=== PATIENT | female | born 1965 | race American Indian/Alaskan Native ===

== ENCOUNTER 2019-12-24 14:22 | Emergency (ER) | payer MEDICARE ==
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
[2019-12-24 14:39] VITALS: BP 158/78
== END 2019-12-24 14:40 | disposition left against medical advice (07) ==
LOC: ED 14:22
DX: M79.601 Pain in right arm (principal)
CPT/HCPCS: 99283

== ENCOUNTER 2020-04-04 08:02 | Emergency (ER) | payer MEDICARE ==
[2020-04-04] MEDS ORDERED: HYDROcodone/ACETAMINOPHEN 5-325 MG TAB PO ONE (09:03)
--- NOTE | 2020-04-04 09:07 | Emergency Department Report ---
ED Back Pain/Injury HPI - General Chief Complaint: Pain General Stated Complaint: FLANK PAIN Time Seen by Provider: 04/04/20 08:52 Source: patient Limitations: No Limitations - History of Present Illness Initial Comments: 55-year-old female with a past medical history CAD with stent, diabetes, CHF hypertension, breast cancer currently in remission, and multiple sclerosis currently on meds presents to the hospital complains of right flank pain for several days to 1 week. Pain switches left to right side but currently right sided. Pain is intermittent, rated 7/10 intensity, worse with movement and palpation. She denies nausea, vomiting, chest pain, abdominal pain, dysuria, leg weakness, or numbness. Patient complains of urinary frequency. She is currently on Detrol. She denies history of kidney stones or recent fever. - Related Data Home Medications Medication Instructions Recorded Confirmed Last Taken Interferon Beta-1A/Albumin [Rebif 0.5 ml SC 3XW 05/24/14 01/30/16 Unknown Rebidose 44 Mcg/0.5 ml] Previous Rx's Medication Instructions Recorded Last Taken Type Metformin HCl [metFORMIN ER] 500 mg PO BID #60 tab.er.24h 05/27/14 11/10/14 Rx ALPRAZolam [Xanax TAB] 0.5 mg PO BID PRN #20 tablet 02/05/16 Unknown Rx Aspirin [Aspirin BABY CHEW TAB] 81 mg PO QDAY #100 tab.chew 02/05/16 Unknown Rx AtorvaSTATin [Lipitor] 20 mg PO QHS #30 tablet 02/05/16 Unknown Rx Famotidine [Pepcid] 20 mg PO BID #60 tablet 02/05/16 Unknown Rx Insulin Glargine [Lantus VIAL] 30 units SUB-Q DAILY #1 vial 02/05/16 Unknown Rx Ipratropium/Albuterol Sulfate 1 ampul IH TIDRT PRN #100 ampul.neb 02/05/16 Unknown Rx [DUONEB *Not for PRN Use*] SILVER sulfADIAZINE 50 GRAM 1 applic TP BID #100 tube 02/05/16 Unknown Rx [Thermazene 50 Gram] carvediloL [Coreg] 6.25 mg PO BID #60 tablet 02/05/16 Unknown Rx hydrALAZINE [Apresoline TAB] 75 mg PO Q8HR #90 tablet 02/05/16 Unknown Rx HYDROcodone/APAP 5-325 [[place] 1 each PO Q6HR PRN #14 tablet 04/04/20 Unknown Rx 5/325] cephALEXin [Keflex] 500 mg PO Q12HR #14 cap 04/04/20 Unknown Rx Allergies Allergy/AdvReac Type Severity Reaction Status Date / Time DEL Inhibitors Allergy Angioedema Verified 12/24/19 14:29 ED Review of Systems ROS: Stated complaint: FLANK PAIN Other details as noted in HPI Comment: All other systems reviewed and negative ED Past Medical Hx - Past Medical History Hx Hypertension: Yes Hx Heart Attack/AMI: Yes Hx Congestive Heart Failure: Yes (EF 20 to 25% on echo January 2016) Hx Diabetes: Yes Hx Deep Vein Thrombosis: No Hx Liver Disease: No Hx of Cancer: Yes (History of breast cancer) Hx Seizures: No Hx Asthma: No Hx COPD: No Hx Tuberculosis: No Hx Dementia: No Additional medical history: Multiple sclerosis - Surgical History Hx Coronary Stent: Yes (LAD drug-eluting stent placed April 2014) Hx Pacemaker: No Hx Internal Defibrillator: No Hx Breast Surgery: Yes Additional Surgical History: unknown - Social History Smoking Status: Never Smoker Substance Use Type: None - Medications Home Medications: Home Medications Medication Instructions Recorded Confirmed Last Taken Type Interferon Beta-1A/Albumin [Rebif 0.5 ml SC 3XW 05/24/14 01/30/16 Unknown History Rebidose 44 Mcg/0.5 ml] Metformin HCl [metFORMIN ER] 500 mg PO BID #60 tab.er.24h 05/27/14 01/30/16 11/10/14 Rx ALPRAZolam [Xanax TAB] 0.5 mg PO BID PRN #20 tablet 02/05/16 Unknown Rx Aspirin [Aspirin BABY CHEW TAB] 81 mg PO QDAY #100 tab.chew 02/05/16 Unknown Rx AtorvaSTATin [Lipitor] 20 mg PO QHS #30 tablet 02/05/16 Unknown Rx Famotidine [Pepcid] 20 mg PO BID #60 tablet 02/05/16 Unknown Rx Insulin Glargine [Lantus VIAL] 30 units SUB-Q DAILY #1 vial 02/05/16 Unknown Rx Ipratropium/Albuterol Sulfate 1 ampul IH TIDRT PRN #100 ampul.neb 02/05/16 Unknown Rx [DUONEB *Not for PRN Use*] SILVER sulfADIAZINE 50 GRAM 1 applic TP BID #100 tube 02/05/16 Unknown Rx [Thermazene 50 Gram] carvediloL [Coreg] 6.25 mg PO BID #60 tablet 02/05/16 Unknown Rx hydrALAZINE [Apresoline TAB] 75 mg PO Q8HR #90 tablet 02/05/16 Unknown Rx HYDROcodone/APAP 5-325 [[place] 1 each PO Q6HR PRN #14 tablet 04/04/20 Unknown Rx 5/325] cephALEXin [Keflex] 500 mg PO Q12HR #14 cap 04/04/20 Unknown Rx ED Physical Exam - General Limitations: No Limitations - Other Other exam information: General: No acute distress Head: Atraumatic Eyes: normal appearance ENT: Moist mucous membranes Neck: Normal appearance, no midline tenderness Chest: Clear to auscultation bilaterally CV: Regular rate and rhythm Abdomen: Soft, normal bowel sounds, nontender, nondistended, no rebound or guarding Back: Normal inspection Extremity: Normal inspection, no midline tenderness. Tenderness to the right flank/paraspinal muscles Neuro: Alert O x 3, no facial asymmetry, speech clear, no gross motor sensory deficit Psych: Appropriate behavior Skin: No rash ED Course Vital Signs 04/04/20 04/04/20 04/04/20 08:12 09:01 12:41 Temperature 96.0 F L Pulse Rate 86 98 H 90 Respiratory 20 24 18 Rate Blood Pressure 122/103 141/77 140/68 [Left] O2 Sat by Pulse 97 97 99 Oximetry ED Medical Decision Making - Lab Data Result diagrams: 04/04/20 09:33 04/04/20 09:33 Lab Results 04/04/20 04/04/20 04/04/20 Range/Units 09:30 09:33 09:33 WBC 10.1 (4.5-11.0) K/mm3 RBC 3.62 L (3.65-5.03) M/mm3 Hgb 11.4 (10.1-14.3) gm/dl Hct 33.6 (30.3-42.9) % MCV 93 (79-97) fl MCH 31 (28-32) pg MCHC 34 (30-34) % RDW 13.4 (13.2-15.2) % Plt Count 227 (140-440) K/mm3 [place] % (Auto) Cook Helper Dessert Add Manual Diff Complete Total Counted 100 Seg Neuts % (Manual) 63.0 (40.0-70.0) % Band Neutrophils % 0 % Lymphocytes % (Manual) 15.0 (13.4-35.0) % Reactive Lymphs % (Man) 0 % Monocytes % (Manual) 22.0 H (0.0-7.3) % Eosinophils % (Manual) 0 (0.0-4.3) % Basophils % (Manual) 0 (0.0-1.8) % Metamyelocytes % 0 % Myelocytes % 0 % Promyelocytes % 0 % Blast Cells % 0 % Nucleated RBC % Not Reportable Seg Neutrophils # Man 6.4 (1.8-7.7) K/mm3 Band Neutrophils # 0.0 K/mm3 Lymphocytes # (Manual) 1.5 (1.2-5.4) K/mm3 Abs React Lymphs (Man) 0.0 K/mm3 Monocytes # (Manual) 2.2 H (0.0-0.8) K/mm3 Eosinophils # (Manual) 0.0 (0.0-0.4) K/mm3 Basophils # (Manual) 0.0 (0.0-0.1) K/mm3 Metamyelocytes # 0.0 K/mm3 Myelocytes # 0.0 K/mm3 Promyelocytes # 0.0 K/mm3 Blast Cells # 0.0 K/mm3 WBC Morphology Not Reportable Hypersegmented Neuts Not Reportable Hyposegmented Neuts Not Reportable Hypogranular Neuts Not Reportable Smudge Cells Not Reportable Toxic Granulation Not Reportable Toxic Vacuolation Not Reportable Dohle Bodies Not Reportable Pelger-Huet Anomaly Not Reportable Ute Rods Not Reportable Platelet Estimate Consistent w auto Clumped Platelets Not Reportable Plt Clumps, EDTA Not Reportable Large Platelets Not Reportable Giant Platelets Not Reportable Platelet Satelliting Not Reportable Plt Morphology Comment Not Reportable RBC Morphology Not Reportable Dimorphic RBCs Not Reportable Polychromasia Not Reportable Hypochromasia 1+ Poikilocytosis Not Reportable Anisocytosis Not Reportable Microcytosis Not Reportable Macrocytosis Not Reportable Spherocytes Not Reportable Pappenheimer Bodies Not Reportable Sickle Cells Not Reportable Target Cells Not Reportable Tear Drop Cells Not Reportable Ovalocytes Not Reportable Helmet Cells Not Reportable Bhagat-Pyatt Bodies Not Reportable [place] Rings Not Reportable [place] Cells Not Reportable Bite Cells Not Reportable Crenated Cell Not Reportable Elliptocytes Not Reportable Acanthocytes (Spur) Not Reportable Rouleaux Not Reportable Hemoglobin C Crystals Not Reportable Schistocytes Not Reportable Malaria parasites Not Reportable Madhu Bodies Not Reportable Hem Pathologist Commnt No Sodium 137 (137-145) mmol/L Potassium 3.8 (3.6-5.0) mmol/L Chloride 97.4 L (98-107) mmol/L Carbon Dioxide 24 (22-30) mmol/L Anion Gap 19 mmol/L BUN 15 (7-17) mg/dL Creatinine 0.6 L (0.7-1.2) mg/dL Estimated GFR > 60 ml/min BUN/Creatinine Ratio 25 % Glucose 136 H (65-100) mg/dL Calcium 9.7 (8.4-10.2) mg/dL Total Bilirubin 0.30 (0.1-1.2) mg/dL AST 67 H (5-40) units/L ALT 45 (7-56) units/L Alkaline Phosphatase 56 (35-129) units/L Total Protein 7.5 (6.3-8.2) g/dL Albumin 4.2 (3.9-5) g/dL Albumin/Globulin Ratio 1.3 % Urine Color Yellow (Yellow) Urine Turbidity Cloudy (Clear) Urine pH 5.0 (5.0-7.0) Ur Specific [place] 1.029 (1.003-1.030) Urine Protein 100 mg/dl (Negative) mg/dL Urine Glucose (UA) >=500 (Negative) mg/dL Urine Ketones 20 (Negative) mg/dL Urine Blood Mod (Negative) Urine Nitrite Neg (Negative) Urine Bilirubin Neg (Negative) Urine Urobilinogen < 2.0 (<2.0) mg/dL Ur Leukocyte Esterase Lg (Negative) Urine WBC (Auto) > 182.0 H (0.0-6.0) /HPF Urine RBC (Auto) 8.0 (0.0-6.0) /HPF U Epithel Cells (Auto) < 1.0 (0-13.0) /HPF Urine Bacteria (Auto) 2+ (Negative) /HPF Urine Mucus Few /HPF - Radiology Data Radiology results: report reviewed CT ABDOMEN AND PELVIS WITHOUT CONTRAST HISTORY: right flank pain COMPARISON: None. TECHNIQUE: Axial CT images were obtained through the abdomen and pelvis without IV contrast. Sagittal and coronal reformatted images. All CT scans at this location are performed using CT dose reduction for ALARA by means of automated exposure control. FINDINGS: CT ABDOMEN: Lung Bases: Clear. An approximate 3.4 cm predominantly calcified right breast mass is partially imaged. Liver: No significant abnormality. 7 mm calcified granuloma in the superior right hepatic lobe is noted. Biliary: No significant abnormality. Spleen: No significant abnormality. Unenlarged. Pancreas: No significant abnormality. Adrenals: No significant abnormality. Kidneys: No significant abnormality. No evidence for nephrolithiasis or hydronephrosis. The ureters are normal course and caliber. Lymphatics: No lymphadenopathy. Vasculature: Moderate aortic and iliac calcifications. No aneurysm. Bowel/Peritoneum: There is mild diverticulosis of the proximal colon. No acute inflammatory changes, obstruction or obvious mass. No free fluid or free air. Normal appendix. CT PELVIS: : The uterus is enlarged and lobular consistent with moderate to severe uterine fibroid disease. Some of the fibroids demonstrates calcific degeneration. The adnexa, bladder and distal ureters are unremarkable. Osseous Structures: Moderate to severe degenerative changes are identified at L4-5 with anterolisthesis of L4 with respect L5 measuring 6 mm. This appears to be secondary to degenerative facet arthropathy. There is moderate to severe bilateral neural foraminal narrowing at this level. The remaining bony structures are unremarkable. Additional Findings: None IMPRESSION: No acute inflammatory process is identified. No clear explanation for right flank pain. No evidence for nephrolithiasis. Moderate to severe uterine fibroid disease. Atherosclerotic disease in the aorta. Grade 1/2 anterolisthesis of L4 with respect to L5 as described with degenerative changes. - Medical Decision Making Patient's urine positive for infection. No signs of urosepsis or pyelonephritis. Patient treated with [place] and IM Rocephin in the ED and will be discharged on antibiotics and pain medicine and encouraged outpatient follow-up. Urine cultures ordered. Critical Care Time: No Critical care attestation.: If time is entered above; I have spent that time in minutes in the direct care of this critically ill patient, excluding procedure time. ED Disposition Clinical Impression: UTI (urinary tract infection), Multiple sclerosis, Diabetes Disposition: TO HOME OR SELFCARE Is pt being admited?: No Does the pt Need Aspirin: No Condition: Stable Instructions: Urinary Tract Infection in Women (ED), Diabetes Mellitus Type 2 in Adults (ED) Additional Instructions: Take the medication as prescribed. Follow-up with your doctor or doctor/clinic provided. Return if symptoms worsen as indicated by your discharge instructions. Prescriptions: cephALEXin [Keflex] 500 mg PO Q12HR #14 cap HYDROcodone/APAP 5-325 [[place] 5/325] 1 each PO Q6HR PRN #14 tablet PRN Reason: Pain Referrals: YACHATS THOMASFREEMAN MD FAUSTO [Referring] - 3-5 Days your, doctor [Other] - 3-5 Days Time of Disposition: 14:12
[2020-04-04 09:52] LABS: Hematocrit 33.6 % (30.3-42.9); Hemoglobin 11.4 gm/dl (10.1-14.3); Mean Corpuscular HGB Conc 34 % (30-34); Mean Corpuscular Volume 93 fl (79-97); Platelet Count 227 K/mm3 (140-440); Red Blood Count 3.62 M/mm3 (3.65-5.03); Red Cell Distribution Width 13.4 % (13.2-15.2)
[2020-04-04 10:15] LABS: Alanine Aminotransferase 45 units/L (7-56); Albumin 4.2 g/dL (3.9-5); BUN/Creatinine Ratio 25; Blood Urea Nitrogen 15 mg/dL (7-17); Calcium 9.7 mg/dL (8.4-10.2); Hemolysis Index 3
--- NOTE | 2020-04-04 10:28 | Cat Scan Report ---
CT ABDOMEN AND PELVIS WITHOUT CONTRAST HISTORY: right flank pain COMPARISON: None. TECHNIQUE: Axial CT images were obtained through the abdomen and pelvis without IV contrast. Sagittal and coronal reformatted images. All CT scans at this location are performed using CT dose reduction for ALARA by means of automated exposure control. FINDINGS: CT ABDOMEN: Lung Bases: Clear. An approximate 3.4 cm predominantly calcified right breast mass is partially image d. Liver: No significant abnormality. 7 mm calcified granuloma in the superior right hepatic lobe is not ed. Biliary: No significant abnormality. Spleen: No significant abnormality. Unenlarged. Pancreas: No significant abnormality. Adrenals: No significant abnormality. Kidneys: No significant abnormality. No evidence for nephrolithiasis or hydronephrosis. The ureters a re normal course and caliber. Lymphatics: No lymphadenopathy. Vasculature: Moderate aortic and iliac calcifications. No aneurysm. Bowel/Peritoneum: There is mild diverticulosis of the proximal colon. No acute inflammatory changes, obstruction or obvious mass. No free fluid or free air. Normal appendix. CT PELVIS: : The uterus is enlarged and lobular consistent with moderate to severe uterine fibroid disease. So me of the fibroids demonstrates calcific degeneration. The adnexa, bladder and distal ureters are unr emarkable. Osseous Structures: Moderate to severe degenerative changes are identified at L4-5 with anterolisthes is of L4 with respect L5 measuring 6 mm. This appears to be secondary to degenerative facet arthropat hy. There is moderate to severe bilateral neural foraminal narrowing at this level. The remaining bon y structures are unremarkable. Additional Findings: None IMPRESSION: No acute inflammatory process is identified. No clear explanation for right flank pain. No evidence for nephrolithiasis. Moderate to severe uterine fibroid disease. Atherosclerotic disease in the aorta. Grade 1/2 anterolisthesis of L4 with respect to L5 as described with degenerative changes. Signer Name: Vazquez Carranza Jr, MD Signed: 04/04/2020 10:24 AM Workstation Name: [id number]
[2020-04-04 12:08] LABS: Bacteria,Urine 2+ /HPF (Negative); Bilirubin,Urine NEG (Negative); Blood,Urine MOD (Negative); Color,Urine Yellow (Yellow); Mucus,Urine FEW /HPF; Urobilinogen,Urine < 2.0 mg/dL (<2.0)
[2020-04-04 12:10] LABS: WBC,Urine > 182.0 /HPF (0.0-6.0)
[2020-04-04 12:42] VITALS: BP 140/68
[2020-04-04] MEDS ORDERED: LIDOCAINE-MPF (1%) 10 MG/1 ML VIAL 5 ML INFILTRATI ONE (12:48)
[2020-04-04 12:59] LABS: Basophils % (Manual) 0 % (0.0-1.8); Eosinophils % (Manual) 0 % (0.0-4.3); Hypochromasia 1+; Platelet Estimate Consistent w Auto; Total Cells Counted 100
== END 2020-04-04 14:40 | disposition home or self-care (01) ==
LOC: ED 08:02
DX: N39.0 Urinary tract infection, site not specified (principal); G35 Multiple sclerosis; E11.9 Type 2 diabetes mellitus without complications; I11.0 Hypertensive heart disease with heart failure; I50.9 Heart failure, unspecified; I25.2 Old myocardial infarction; Z85.3 Personal history of malignant neoplasm of breast; Z98.890 Other specified postprocedural states; Z79.899 Other long term (current) drug therapy; Z79.4 Long term (current) use of insulin; Z88.8 Allergy status to other drugs, medicaments and biological substances
CPT/HCPCS: 36415; 74176; 80053; 81001; 85007; 85025; 87086; 96372; 99284; J0696

== ENCOUNTER 2022-07-05 11:20 | Emergency (ER) | payer MEDICARE ==
[2022-07-05] MEDS ORDERED: fentaNYL 100 MCG/2 ML INJ IV ONE (12:55)
[2022-07-05] MEDS ORDERED: ONDANSETRON 4 MG/2 ML INJ IV ONE (12:55)
[2022-07-05] MEDS ORDERED: methylPREDNISolone Sod Succinate 125 MG/2 ML INJ IV ONE (13:04)
--- NOTE | 2022-07-05 13:07 | Emergency Department Report ---
HPI - General Chief Complaint: Back Pain/Injury Time Seen by Provider: 07/05/22 12:47 - HPI HPI: Room 17 Patient is a 57-year-old female present with a chief complaint of back pain. Patient has a history of MS states for the past week she has had pain in her lower back and bilateral shoulders. Patient denies any preceding trauma. Patient states she has a history of the same exact pain in the past all of which has been attributed to her multiple sclerosis. The patient gives her back pain a score of 8/10 and describes the pain as sharp and intermittent in nature exacerbated by movement ED Past Medical Hx - Past Medical History Hx Hypertension: Yes Hx Heart Attack/AMI: Yes Hx Congestive Heart Failure: Yes (EF 20 to 25% on echo January 2016) Hx Diabetes: Yes Additional medical history: Multiple sclerosis - Surgical History Hx Coronary Stent: Yes (LAD drug-eluting stent placed April 2014) Hx Breast Surgery: Yes Additional Surgical History: unknown - Family History Family history: no significant - Social History Smoking Status: Former Smoker (None x11 years) Substance Use Type: None (Denies illicit drug use), Alcohol (Occasional) - Medications Home Medications: Home Medications Medication Instructions Recorded Confirmed Last Taken Type Interferon Beta-1A/Albumin [Rebif 0.5 ml SC 3XW 05/24/14 08/29/20 Unknown History Rebidose 44 Mcg/0.5 ml] Metformin HCl [metFORMIN ER] 500 mg PO BID #60 tab.er.24h 05/27/14 08/29/20 0 11/10/14 Rx Insulin Glargine [Lantus VIAL] 30 units SUB-Q DAILY #1 vial 02/05/16 08/29/20 Unknown Rx carvediloL [Coreg] 6.25 mg PO BID #60 tablet 02/05/16 08/29/20 Unknown Rx Baclofen 20 mg PO DAILY 08/29/20 08/29/20 Unknown History Cholecalciferol (Vitamin D3) 1,250 mcg PO QWEEK 08/29/20 08/29/20 Unknown History [Decara 50,000 unit] Dapagliflozin Propanediol (Nf) 5 mg PO DAILY 08/29/20 08/29/20 Unknown History [Farxiga (Nf)] Linagliptin [Tradjenta] 5 mg PO QDAY 08/29/20 08/29/20 Unknown History Memantine 5 mg PO DAILY 08/29/20 08/29/20 Unknown History Pregabalin [Lyrica] 75 mg PO DAILY 08/29/20 08/29/20 Unknown History Rosuvastatin Calcium [Crestor] 20 mg PO DAILY 08/29/20 08/29/20 Unknown History Tolterodine [Detrol LA] 2 mg PO QDAY 08/29/20 08/29/20 Unknown History Tolterodine [Detrol LA] 4 mg PO DAILY 08/29/20 08/29/20 Unknown History glipiZIDE XL [Glucotrol Xl] 5 mg PO QAM 08/29/20 08/29/20 Unknown History hydrALAZINE [Apresoline TAB] 50 mg PO Q8HR 08/29/20 08/29/20 Unknown History HYDROcodone/APAP 5-325 [[place] 1 - 2 each PO Q6HR PRN #20 tablet 07/05/22 Unknown Rx 5/325] ED Review of Systems ROS: Stated complaint: BACK/FLANK PAIN (RT) Other details as noted in HPI Constitutional: no symptoms reported Eyes: denies: eye pain ENT: denies: throat pain Respiratory: no symptoms reported Cardiovascular: denies: chest pain Endocrine: no symptoms reported Gastrointestinal: denies: abdominal pain Genitourinary: denies: dysuria Musculoskeletal: back pain Neurological: denies: paresthesias Physical Exam - Physical Exam Vital Signs: Vital Signs 07/05/22 11:21 Temperature 98.8 F Pulse Rate 111 H Respiratory 15 Rate Blood Pressure 157/82 [Left] O2 Sat by Pulse 99 Oximetry Physical Exam: GENERAL: The patient is well-developed well-nourished female lying on stretcher not appearing to be in acute distress. [] HEENT: Normocephalic. Atraumatic. Extraocular motions are intact. Patient has moist mucous membranes. NECK: Supple. Trachea midline CHEST/LUNGS: Clear to auscultation. There is no respiratory distress noted. HEART/CARDIOVASCULAR: Regular. There is no tachycardia. There is no gallop rub or murmur. ABDOMEN: Abdomen is soft, nontender. Patient has normal bowel sounds. There is no abdominal distention. SKIN: There is no rash. There is no edema. There is no diaphoresis. NEURO: The patient is awake, alert, and oriented. The patient is cooperative. The patient has no focal neurologic deficits. The patient has normal speech and gait. MUSCULOSKELETAL: There is no axial tenderness to palpation. There is no evidence of acute injury. ED Course Vital Signs 07/05/22 11:21 Temperature 98.8 F Pulse Rate 111 H Respiratory 15 Rate Blood Pressure 157/82 [Left] O2 Sat by Pulse 99 Oximetry - Reevaluation(s) Reevaluation #1: 07/05/22 17:11 Patient states her pain is improved ED Medical Decision Making - Radiology Data Radiology results: report reviewed (Lumbar spine x-ray), image reviewed (Lumbar spine x-ray) interpreted by me: Lumbar spine x-ray-no acute fracture seen. L4-5 spondylolisthesis [facility] [address] [place] [address] XRay Report Signed Patient: MELLISSA STOKES MR#: [id number] : 1965 Acct:[id number] Age/Sex: 57 / F ADM Date: 07/05/22 Loc: ED Attending Dr: Ordering Physician: LEO ANNE MD Date of Service: 07/05/22 Procedure(s): XR spine lumbosacral 2-3V Accession Number(s): [id number] cc: LEO ANNE MD Fluoro Time In Minutes: LUMBAR SPINE 3 VIEWS INDICATION / CLINICAL INFORMATION: Pain. COMPARISON: MRI dated 08/30/20 FINDINGS: VERTEBRAE: No acute fracture. Mild dextrocurvature is unchanged. Grade 1 degenerative anterolisthesis of L4 on L5 is unchanged. DISC SPACES / FACET JOINTS:Mild L4-5 disc space narrowing with moderate facet arthropathy at this level.. PARASPINAL SOFT TISSUES:Moderate aortobiiliac atherosclerotic calcification without aneurysm. ADDITIONAL FINDINGS: None. IMPRESSION: 1. No acute findings. 2. Grade 1 L4-5 spondylolisthesis is unchanged. Signer Name: Teofilo Henry MD Signed: 07/05/2022 1:55 PM Workstation Name: [id number] Transcribed By: DT Dictated By: Kevin Henry MD Electronically Authenticated By: Kevin Henry MD Signed Date/Time: 07/05/22 1352 DD/ 135 TD/TT: - Differential Diagnosis MS flare, lumbar radiculopathy Critical care attestation.: If time is entered above; I have spent that time in minutes in the direct care of this critically ill patient, excluding procedure time. ED Disposition Clinical Impression: Back pain, Spondylolisthesis at L4-L5 level Disposition: HOME / SELF CARE / HOMELESS Is pt being admited?: No Does the pt Need Aspirin: No Condition: Stable Instructions: Spondylolisthesis Rehab-SportsMed, Chronic Back Pain Additional Instructions: Return to the emergency department should you develop worsening symptoms, inability to tolerate food or liquids, high fever or any other concerns Prescriptions: HYDROcodone/APAP 5-325 [[place] 5/325] 1 - 2 each PO Q6HR PRN #20 tablet PRN Reason: Pain Referrals: LUIS FERNANDO BROWN MD [Primary Care Provider] - 3-5 Days LA WALSH II, MD [Staff Physician] - 3-5 Days (Dr. Walsh is a neurosurgeon. Please follow-up with him for further evaluation of your back pain) Time of Disposition: 17:13
--- NOTE | 2022-07-05 14:00 | XRay Report ---
LUMBAR SPINE 3 VIEWS INDICATION / CLINICAL INFORMATION: Pain. COMPARISON: MRI dated 08/30/20 FINDINGS: VERTEBRAE: No acute fracture. Mild dextrocurvature is unchanged. Grade 1 degenerative anterolisthesis of L4 on L5 is unchanged. DISC SPACES / FACET JOINTS:Mild L4-5 disc space narrowing with moderate facet arthropathy at this lev el.. PARASPINAL SOFT TISSUES:Moderate aortobiiliac atherosclerotic calcification without aneurysm. ADDITIONAL FINDINGS: None. IMPRESSION: 1. No acute findings. 2. Grade 1 L4-5 spondylolisthesis is unchanged. Signer Name: Teofilo Henry MD Signed: 07/05/2022 1:55 PM Workstation Name: [id number]
[2022-07-05 19:08] VITALS: BP 177/97
== END 2022-07-05 18:15 | disposition home or self-care (01) ==
LOC: ED 11:20
DX: M54.9 Dorsalgia, unspecified (principal); M46.86 Other specified inflammatory spondylopathies, lumbar region; I21.9 Acute myocardial infarction, unspecified; I50.9 Heart failure, unspecified; I11.0 Hypertensive heart disease with heart failure; E11.9 Type 2 diabetes mellitus without complications; Z87.891 Personal history of nicotine dependence
CPT/HCPCS: 72100; 96374; 96375; 99284; J2405; J2930; J3010